=== PATIENT | female | born 1925 | race Caucasian/White ===

== ENCOUNTER 2016-03-14 11:35 | Emergency (ER) | payer MEDICARE ==
[2016-03-14] MEDS ORDERED: FENTANYL 100 MCG/2 ML VIAL ONE (13:14)
[2016-03-14 13:38] LABS: ABSOLUTE NEUTROPHIL COUNT 5.9 K/mm3 (1.8-7.7); BASO # 0.1 K/mm3 (0.0-0.2); BASO % 0.7 % (0.2-1.0); EOS # 0.3 (0.0-0.5); EOS % 3.3 % (0.9-2.9); HEMATOCRIT 43.2 % (37.0-47.0); HEMOGLOBIN 13.6 gm/l (12.0-16.0); IMM NEUT% 0.4 % (0-1); LYMPH # 1.8 (1.0-4.8); LYMPH % 20.7 % (15-45); MEAN CORPUSCULAR HEMOGLOBIN 31.5 pg (27.0-31.0); MEAN CORPUSCULAR HGB CONC 31.5 g/dl (33.0-37.0); MEAN PLATELET VOLUME 10.5 fl (7.4-10.4); MONO # 0.6 (0.0-0.8); MONO % 6.5 % (4-12); NEUT % 68.4 % (43-75); PLATELET COUNT 156 K/mm3 (130-400); RED CELL DISTRIBUTION WIDTH 13.2 % (11.5-14.5)
[2016-03-14 13:49] LABS: CALCIUM 9.4 mg/dL (8.6-10.3)
--- NOTE | 2016-03-14 14:05 | CT ---
HEAD W/O CON History: Fall yesterday. Comparison: 06/07/2014. Procedure: 1 mm axial images were obtained through the head from the vertex to the base of the skull without intravenous contrast. Stacked reconstructed 5 mm images were then obtained in the axial, coronal and sagittal planes. Findings: The lateral ventricles, cerebral sulci and sylvian fissures are mildly prominent. No evidence of midline shift is seen. No mass or mass effect is identified. No evidence of intra or extra-axial fluid collections or hemorrhage is seen. There are periventricular deep white matter low-attenuation changes again observed with a dystrophic focus of calcification within the right frontal deep white matter, similar to its appearance on prior examination. The basilar cisterns are uneffaced. The posterior fossa structures are unremarkable. No acute osseous abnormalities are identified. Impression: 1. No findings of acute intracranial hemorrhage. 2. Stable cerebral atrophy. 3. Periventricular deep white matter low-attenuation changes most consistent with small vessel ischemia considering patient age. 4. A focus of dystrophic calcification within the right frontal deep white matter, with a similar appearance to that seen on prior exam of 06/07/2014.
--- NOTE | 2016-03-14 14:11 | CT ---
C-SPINE W/O CON History: Fall. Procedure: 1 mm axial images were obtained through the cervical spine from the base of the skull to T1 with stacked reconstructed 2 mm images photographed in the axial, coronal and sagittal planes. Comparison: None. Findings: There is evidence of some motion artifact which slightly limits the examination. The osseous structures are intact without evidence of a discrete fracture. The alignment is normal. No significant subluxation is visualized. The facets align appropriately without evidence of a perched or jumped facet. The spinous processes appear to be intact. No prevertebral soft tissue swelling is observed. The pre-dens space is not widened. The odontoid process is intact. There are prominent cervical spondylosis changes and uncinate process hypertrophy identified with suggested partial fusion of the anterior and posterior elements at C3-4. There are minimal biapical emphysematous changes seen within the lung apices. Suggested right apical pleural-based scarring is also noted. Impression: 1. No definite fracture or significant subluxation visualized. 2. Prominent multilevel cervical spondylosis changes and uncinate process hypertrophy with partial fusion of the anterior and posterior elements at C3-4. 3. Right apical pleural scarring. 4. Dense atherosclerotic calcification of both carotid bulbs.
--- NOTE | 2016-03-14 14:17 | CT ---
UPPER EXT W/O CON RT History: Recent fall with known fracture. Comparison: Previous examinations performed at [facility] are unavailable. Procedure: 1 mm axial images were obtained through the right wrist without the use of oral or intravenous contrast.. Stacked reconstructed 3 mm images were then photographed in the axial, coronal and sagittal planes. Findings: Images were scanned within overlying cast material demonstrating a comminuted fracture of the distal right radial metaphysis. There is a slightly displaced dorsal cortical fragment identified as well as slight dorsal angulation of the distal radial fragment. The ulna appears to remain intact. There is little significant ulnar positive variance identified. The carpal structures appear to be intact as well. There are degenerative changes noted of the first carpometacarpal articulation. Soft tissue edematous changes are suggested. Impression: 1. A comminuted fracture of the distal right radial metaphysis with slight dorsal angulation of the distal fragment and a small displaced dorsal cortical fragment. 2. Suggested generative changes of the medial carpus and the first carpometacarpal articulation.
[2016-03-14] MEDS ORDERED: LACTATED RINGERS 1,000 ML ONE (14:24)
--- NOTE | 2016-03-14 15:26 | RAD ---
WRIST RIGHT 2 VIEWS HISTORY: Wrist fracture. COMPARISONS: CT examination of the same day. FINDINGS: 2 views of the right wrist were performed within overlying cast material demonstrating diffuse bony osteopenia. There is a comminuted fracture of the distal right radial metaphysis with slight dorsal angulation of the distal radial fragment. Degenerative changes are seen of the medial carpus and the first carpometacarpal articulation. Detail is obscured by the overlying cast material. IMPRESSION: 1. Bony osteopenia. 2. A slightly angulated comminuted fracture of the distal right radial metaphysis. 3. 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
== END 2016-03-14 17:16 | disposition home or self-care (01) ==
LOC: ED 11:35
DX: S52.501A Unspecified fracture of the lower end of right radius, initial encounter for closed fracture (principal); G31.9 Degenerative disease of nervous system, unspecified; M47.812 Spondylosis without myelopathy or radiculopathy, cervical region; W18.30XA Fall on same level, unspecified, initial encounter; Y92.009 Unspecified place in unspecified non-institutional (private) residence as the place of occurrence of the external cause
CPT/HCPCS: 85025; 82550; 80048; 73100; 72125; 70450; 73200; 99284 ×2; 29105; 96374; 96361; J3010; J7120

== ENCOUNTER 2016-04-08 21:03 | Inpatient (IN) | payer MEDICARE ==
[2016-04-08] MEDS ORDERED: SODIUM CHLORIDE 0.9% 250 ML IV ONE (21:37)
[2016-04-08 23:06] LABS: ABSOLUTE NEUTROPHIL COUNT 8.9 K/mm3 (1.8-7.7); BASO % 0.4 % (0.2-1.0); EOS % 0.4 % (0.9-2.9); HEMATOCRIT 39.8 % (37.0-47.0); HEMOGLOBIN 12.5 gm/l (12.0-16.0); IMM NEUT # 0.1 K/mm3 (0-0.2); IMM NEUT% 0.4 % (0-1); LYMPH # 1.4 (1.0-4.8); LYMPH % 12.7 % (15-45); MEAN CELL VOLUME 101.5 fl (81.0-99.0); MEAN CORPUSCULAR HEMOGLOBIN 31.9 pg (27.0-31.0); MEAN CORPUSCULAR HGB CONC 31.4 g/dl (33.0-37.0); MEAN PLATELET VOLUME 11.4 fl (7.4-10.4); MONO # 0.7 (0.0-0.8); MONO % 6.4 % (4-12); NEUT % 79.7 % (43-75); PLATELET COUNT 196 K/mm3 (130-400); RED CELL DISTRIBUTION WIDTH 13.9 % (11.5-14.5)
[2016-04-08 23:23] LABS: CALCIUM 10.3 mg/dL (8.6-10.3)
[2016-04-09] MEDS ORDERED: SODIUM CHLORIDE 0.9% 250 ML IV ONE (00:45)
[2016-04-09] MEDS ORDERED: MORPHINE SULFATE 2 MG/ML SYRINGE ONE (00:45)
[2016-04-09] MEDS ORDERED: ONDANSETRON 4 MG/2ML 2 ML VIAL ONE ×2 (00:45→12:44)
[2016-04-09] MEDS ORDERED: SODIUM POLYSTYRENE SULFONATE 15 G/60 ML BOT PR SCH ×3 (02:30→09:00)
[2016-04-09] MEDS ORDERED: SODIUM CHLORIDE 0.9% 100 ML IV PRN (02:31)
[2016-04-09] MEDS ORDERED: BLISTEX LIPSTICK 1 EACH TP PRN (02:31)
[2016-04-09] MEDS ORDERED: ACETAMINOPHEN 325 MG TABLET PO PRN (02:31)
[2016-04-09] MEDS ORDERED: MENTHOL/CETYLPYRD 1 EACH LOZENGE PO PRN (02:31)
[2016-04-09] MEDS ORDERED: BISACODYL 5 MG TABLET.EC PO PRN (02:31)
[2016-04-09] MEDS ORDERED: BISACODYL 10 MG SUP PR PRN (02:31)
[2016-04-09] MEDS ORDERED: NITROGLYCERIN SL PRN (02:39)
[2016-04-09] MEDS ORDERED: HYDROCODONE/ACETAMINOPHEN 5/325MG TABLET PO PRN (02:39)
[2016-04-09] MEDS ORDERED: ENOXAPARIN SODIUM 30 MG/0.3 ML SYRINGE SUB-Q SCH (02:45)
[2016-04-09] MEDS ORDERED: SODIUM CHLORIDE 0.9% 250 ML IV SCH ×2 (02:45→07:15)
[2016-04-09] MEDS ORDERED: ALBUTEROL/IPRATROPIUM 2.5/0.5 MG 3 ML/EACH DOSE NEB PRN (02:56)
[2016-04-09] MEDS ORDERED: PANTOPRAZOLE SODIUM 40 MG VIAL IV SCH (03:00)
[2016-04-09 04:45] LABS: CKMB ISOENZYME 3.6 ng/ml (0.6-6.3); MAGNESIUM 2.4 mg/dL (1.9-2.7)
[2016-04-09 04:52] LABS: TROPONIN I 0.08 ng/ml (0.0-0.06)
--- NOTE | 2016-04-09 07:04 | HP ---
RICKY MARIE [id number] DATE OF ADMISSION: April 09, 2016 CHIEF COMPLAINT: Weakness. HISTORY OF PRESENT ILLNESS: The patient is an 89-year-old female with a recent history of a fall with forearm fracture and hospitalization at [facility] from March 19 to March 31, 2016 who had returned home. Family reports that she was generally walking as recently as three days ago but then started having worsening appetite, being much weaker with some nausea. She had seen her electronic maintenance supervisor today, had some modest revisions in medication with reduction of aspirin and addition of Plavix. She has also been complaining of some back pain recently increased in the last day. PAST MEDICAL HISTORY: Remarkable for: 1. Recent hospitalization for influenza and pneumonia. 2. Gastroesophageal reflux disease. 3. Chronic kidney disease. 4. Iron deficiency anemia. 5. Mild dementia. 6. Obstructive sleep apnea but not on CPAP. 7. Hypothyroidism. 8. History of uterine cancer. 9. Wrist fracture on March 13, 2016. 10. Carotid and other vascular disease. 11. Bradycardia although she does not have a pacemaker. PAST SURGICAL HISTORY: Remarkable for: 1. Tonsillectomy. 2. Adenoidectomy. 3. Hemorrhoid surgery. 4. Total abdominal hysterectomy and bilateral salpingo-oophorectomy. 5. Laparoscopic cholecystectomy. 6. Detached retina. 7. Colonoscopy and esophagogastroduodenoscopy. ALLERGIES: QUININE. MEDICATIONS: Her home medications as best as can be determined between discharge medicines and input from family are: 1. Albuterol one to two puffs inhaled four times daily as needed. 2. Augmentin 875 one orally twice daily. 3. Aspirin 81 mg daily. 4. Cholecalciferol 2000 orally daily. 5. Celexa 20 mg orally at bedtime. 6. Clopidogrel 75 mg orally daily. 7. Vitamin B12 1000 mcg orally daily. 8. Doxycycline 100 mg orally daily. 9. Zetia 10 mg at bedtime. 10. Furosemide 20 mg orally daily in the morning. 11. [place] one half tablet orally every four hours as needed. 12. Imdur 30 mg orally daily. 13. Levothyroxine 75 mcg daily. 14. Lisinopril 2.5 mg orally daily. 15. Metoprolol 6.25 mg orally daily. 16. Nitroglycerin one spray sublingually as needed. 17. Fish oil 2000 units orally daily. 18. Omeprazole 20 mg orally daily. 19. Ropinirole 0.5 mg orally daily. 20. Simvastatin 40 mg at bedtime. 21. Spironolactone 25 mg orally daily. 22. Sucralfate 1 gram orally at meals and bedtime. SOCIAL HISTORY: She is . She had been living independently in her home in [place] with support from her family until her fall on March 13, 2016. She has a history of smoking and had smoked for 57 years but has quit. No alcohol use. She is [employer]. 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 FAMILY HISTORY: Not obtained, but her daughter volunteers that patient's father lived to be 105. REVIEW OF SYSTEMS: No eye, ear, nose or throat complaints other than some irritation from oxygen. She would like some ointment for this. Neck, no complaints. Lungs, sleep apnea, some pleural effusions noted. The recent flu and bilateral pleural effusions. Heart, myocardial infarction also associated with this hospitalization. She has congestive heart failure noted on discharge summary as well. Stomach, she had a little bit of blood in her phlegm and some nausea recently. No diarrhea. No constipation. Occasional diverticulitis but not recently. No urinary complaints. No skin complaints. She has had transient ischemic attacks in the past. She has a wrist fracture. CODE STATUS: Code status is not clear. Despite her marked electrolyte abnormalities and renal status, daughter would like to have intervention, but they are not going to pursue dialysis or other aggressive intervention. PHYSICAL EXAM: GENERAL: A slightly pale female. She does awaken some and answers some. VITAL SIGNS: Blood pressure 74/33, pulse 59, 95% saturation n 2 L, respirations 16, temperature 97.6. HEAD: Head is normocephalic, atraumatic. EYES: Are unremarkable. EARS: Right is unremarkable. Left is not examined due to positioning. NOSE: With some minimal irritation near her nares. MOUTH: Has dentures. NECK: Grossly unremarkable. LUNGS: Generally clear to auscultation bilaterally with fairly good air movement. HEART: Mostly regular but distant. ABDOMEN: Soft, nontender, nondistended. Bowel sounds are normal. GENITOURINARY: Exam is deferred. BREAST: Exam is deferred. EXTREMITIES: No clubbing, cyanosis or edema. NEUROLOGIC: Patient is resting but awakens and answers some. Pulses distant. LABORATORY: White count 11.1, hemoglobin 12.5, platelets 196. Sodium 128, potassium 7.4, chloride 98, CO2 20, BUN 135, creatinine 3.5, glucose 147, calcium 10.3. ASSESSMENT AND PLAN: 1. Hyperkalemia. Etiology attributed to acute on chronic kidney disease with use of lisinopril and spironolactone. This elevated result was confirmed. We will be holding spironolactone and lisinopril. Plan small dose of normal saline and anticipate use of Kayexalate either orally or rectally. Family is not interested in dialysis at this time. 2. Acute kidney injury with a previous GFR 25 dropping down to 18. Suspect combination of chronic kidney disease, lisinopril and possibly hypoperfusion from hypotension. Plan to give cautious fluid administration and monitor. 3. Recent influenza A and pneumonia discharged from hospital March 31, 2016. At this point her lung exam sounds fairly clear so we will plan to discontinue the antibiotics and check a chest x-ray. 4. Chronic obstructive pulmonary disease. Anticipate use of nebulizers if needed. 5. Recent non-ST elevation myocardial infarction earlier this month. Will plan to continue on aspirin and try to continue beta jann and Imdur. We will recheck troponin, CK as well as a BNP. 6. History of atrial fibrillation, sinus rhythm with bradycardia and right bundle branch block. We will plan continue with telemetry. 7. History of myxedema. Not otherwise addressed. 8. History of seasonal affective disorder. Not otherwise addressed. Anticipate continuing on citalopram. 9. Elevated glucose with an A1c of 5.8. We will consider monitoring blood sugars. 10. Dyslipidemia. We will actually be holding the simvastatin at this time. 11. Known systolic congestive heart failure with ejection fraction 25% on echocardiogram March,. We will be holding several medicines because of the renal status such as spironolactone and lisinopril and be cautious with fluids. 12. Back pain, etiology not clear. Could consider for imaging if potassium stabilizes. 13. CODE STATUS. One family member in particular is wishing for intervention. Discussed with family. They would appear to request at least a brief intervention in the event of a code. Reviewed the marked electrolyte abnormalities were a risk factor for dysrhythmias and other problems. 14. Venous thrombosis prophylaxis. Anticipate the use of low dose enoxaparin renally adjusted. cc: Linh Gallardo M.D. Isaac Marinelli M.D.
[2016-04-09] MEDS ORDERED: MORPHINE SULFATE 2 MG/ML SYRINGE IV PRN (07:11)
--- NOTE | 2016-04-09 07:22 | PDOC43 ---
- Subjective Chief Complaint: Weakness, ARF, hyperkalemia Patient's family reports some snoring/sleep apnea, but pt did get up to use commode. Was weak, but did it. No new c/o. - Objective Vital Signs Temperature 97.6 F 04/09/16 02:00 Pulse Rate 57 04/09/16 02:00 Respiratory Rate 16 04/09/16 02:00 Blood Pressure 64/28 04/09/16 02:00 O2 Saturation by Pulse Oximetry 95 04/09/16 02:00 Oxygen Delivery Method Nasal Cannula Oxygen Flow Rate 2 Vital Signs Last 12 Hours Temp Pulse Resp BP Pulse Ox 04/09/16 02:00 97.6 F 57 16 64/28 95 General: Other (sleeping, but does wake fairly easily. Answers briefly.) HEENT: Atraumatic Lungs: Clear to Auscultation Bilaterally, Normal Air Movement Cardiovascular: Regular Rate and Rhythm Abdomen: Soft, Normal Bowel Sounds, Non-Distended Extremities: Other (R forearm in cast), No Edema, No Tenderness Psych/Mental Status: Other (seems to wake, answer) Laboratory Tests 04/08/16 22:45 Phosphorus 6.1 H Magnesium 2.4 Creatine Kinase 59 CK-MB (CK-2) 3.6 Troponin I 0.08 H B-Natriuretic Peptide 202 H Current Medications: Current meds reviewed in EMR. Active Medications Acetaminophen (Tylenol) 650 mg PO Q6H PRN PRN Reason: Pain or Temperature > 100.5 F Acetaminophen/Hydrocodone Bitart ([place] 5/325) 0.5 tab PO Q4H PRN PRN Reason: Pain Albuterol/Ipratropium (Duoneb) 3 ml NEB Q6H PRN PRN Reason: Wheezing Aspirin (Ecotrin) 81 mg PO DAILY MARAH Benzocaine/Menthol (Cepacol) 1 each PO PRN PRN PRN Reason: Sore Throat Bisacodyl (Dulcolax) 10 mg MN DAILY PRN PRN Reason: Constipation Bisacodyl (Dulcolax) 5 mg PO DAILY PRN PRN Reason: Constipation Enoxaparin Sodium (Lovenox) 30 mg SUB-Q Q24H MARAH Sodium Chloride (Sodium Chloride 0.9%) 100 mls @ 25 mls/hr IV PRN PRN PRN Reason: Flush Isosorbide Mononitrate (Imdur) 30 mg PO DAILY [facility] Levothyroxine Sodium (Levothroid) 75 mcg PO QAMAC [facility] Metoprolol Succinate (Toprol Xl) 6.25 mg PO DAILY [facility] Miscellaneous (Nitroglycerin) 1 spray SL PRN PRN PRN Reason: Chest Pain Pantoprazole Sodium (Protonix) 40 mg IV Q24H [facility] Last Admin: 04/09/16 03:30 Dose: 40 mg Petrolatum/Paraffin/Mineral Oil (Blistex) 1 each TP PRN PRN PRN Reason: Dry and/or chapped lips Sodium Chloride (Normal Saline 10ml Flush) 10 - 50 ml IV PRN PRN PRN Reason: IV Flush Sodium Polystyrene Sulfonate (Kayexalate) 30 g MN Q6H [facility] - Problems: Assessment/Plan (1) Hyperkalemia Status: Acute Assessment/Plan: Presumed due to BERYL/CKD, plus meds (lisinopril, spironolactone) Receiving kayexalate, waiting on results for this am. Associated with elevated phosphorus, but Mg ok so far. Plan add Phos-Lo, waiting on am electrolytes (ordered for 8 am today), (2) Weakness Status: Acute Assessment/Plan: Primarily attributed to electrolyte disturbance(s), but multifactorial with recent NSTEMI, flu, pneumonia, BERYL. Holding meds as much as possible. Plan PT/OT when electrolytes improved. (3) Hypotension Qualifiers: Hypotension type: unspecified hypotension type Qualifier Code: (I95.9) Hypotension, unspecified Status: Acute Assessment/Plan: Plan add'l IV fluids cautiously. anticipate holding meds as well. (4) BERYL (acute kidney injury) Status: Acute Assessment/Plan: CKD from vascular dz, with suspected BERYL due to hypotension with marked hyperkalemia, elevated phosphorus, borderline Mg. Given kayexalate (MN), add Phos-Lo. Giving IVF to help with BP. (5) CAD (coronary artery disease) Status: Chronic Assessment/Plan: Pt with recent NSTEMI, but troponin, BNP, and CK-MB not bad considering. Hope to continue on aspirin, metoprolol, imdur if pressure allows. (6) CHF (congestive heart failure) Qualifiers: Congestive heart failure type: systolic Congestive heart failure chronicity: acute on chronic Qualifier Code: (I50.23) Acute on chronic systolic (congestive) heart failure Status: Chronic Assessment/Plan: LVEF earlier this month 25% on echo, multiple WMAs seen, RVP>50 mmHg Holding spironolactone, lisinopril due to hyperkalemia, BERYL VTE Prophylaxis: renal status precludes enoxaparin. Consider for mechanical tx. Disposition: To be determined.
[2016-04-09] MEDS ORDERED: LEVOTHYROXINE SODIUM 75 MCG TABLET PO SCH (07:30)
--- NOTE | 2016-04-09 07:33 | RAD ---
PORTABLE CHEST RADIOGRAPH HISTORY: Hyperkalemia, recent influenza. Frontal portable chest radiograph dated 04/09/2016. COMPARISON: 04/02/2015 FINDINGS: LUNG VOLUMES: Hyperinflation. FOCAL AIRSPACE OPACITY: No gross airspace consolidation. PLEURAL EFFUSION: None. CARDIOMEDIASTINAL SILHOUETTE: Nonenlarged. Aortic arch calcification. Left upper extremity approach venous catheter, tip projecting over superior vena cava. PNEUMOTHORAX: None identified. OSSEOUS STRUCTURES: No grossly destructive lesions. IMPRESSION: No acute cardiopulmonary process noted. Hyperinflation suggesting obstructive pulmonary disease. Left upper extremity approach PICC line.
[2016-04-09] MEDS ORDERED: METOPROLOL SUCCINATE 25 MG TAB.ER.24H PO SCH (09:00)
[2016-04-09] MEDS ORDERED: ASPIRIN (ENTERIC COATED) 81 MG TABLET.EC PO SCH (09:00)
[2016-04-09] MEDS ORDERED: ISOSORBIDE MONONITRATE 30 MG TAB.SR PO SCH (09:00)
[2016-04-09] MEDS ORDERED: CALCIUM ACETATE 667 MG CAPSULE PO SCH (09:00)
[2016-04-09 09:05] LABS: CALCIUM 9.5 mg/dL (8.6-10.3); MAGNESIUM 2.4 mg/dL (1.9-2.7)
[2016-04-09] MEDS ORDERED: SODIUM POLYSTYRENE SULFONATE 15 G/60 ML BOT PR ONE (09:30)
--- NOTE | 2016-04-09 09:41 | RAD ---
RIGHT WRIST 2 VIEWS HISTORY: Followup fracture. COMPARISONS: 03/16/2016 TECHNIQUE: Frontal and lateral views the left wrist. FRACTURE: Redemonstration of distal radial fracture status post cast fixation. Over the interval, there is increased impaction and dorsal displacement of the dominant fracture fragment, with notable dorsal tilt of the articular surface. There is increase in ulnar positive variance with abutment against the triquetrum. Nondisplaced ulnar styloid process fracture is noted. SOFT TISSUES: Residual soft tissue swelling. DEGENERATIVE CHANGE: Moderate degeneration radial aspects of the carpus. IMPRESSION: 1. Worsened alignment at distal right radial fracture with increased impaction and dorsal tilt of the dominant fracture fragment. 2. Increase in ulnar positive variance with abutment against the triquetrum. 3. Nondisplaced ulnar styloid process fracture.
[2016-04-09] MEDS ORDERED: SODIUM POLYSTYRENE SULFONATE 15 G/60 ML BOT PO ONE ×2 (10:34→12:09)
[2016-04-09] MEDS ORDERED: FUROSEMIDE 40 MG/4 ML VIAL IV ONE ×2 (12:04→16:00)
[2016-04-09] MEDS ORDERED: INSULIN REGULAR HUMAN (DOSE) 100 UNITS/1 ML IV ONE ×2 (12:04→15:30)
[2016-04-09] MEDS ORDERED: DEXTROSE 50%-WATER 25 G SYRINGE IV ONE (12:05)
[2016-04-09] MEDS ORDERED: ONDANSETRON 4 MG/2ML 2 ML VIAL IV PRN (12:34)
[2016-04-09] MEDS ORDERED: CALCIUM GLUCONATE 1,000 MG in SODIUM CHLORIDE 0.9% 100 ML IV ONE (12:45)
[2016-04-09] MEDS ORDERED: PUMP TUBING ONE ×2 (13:24→15:04)
[2016-04-09] MEDS ORDERED: SODIUM BICARBONATE IV SCH (13:30)
[2016-04-09] MEDS ORDERED: D5W IV SCH (13:30)
[2016-04-09 15:08] VITALS: BP 125/48
--- NOTE | 2016-04-09 15:32 | PDOC36 ---
Provider Note Subject: family discussion Note: family conference held with myself and pts children in regards to care plan. She did not respond to the kayexalate, and indeed her potassium worsened. trail of oral kayexalate failed due to vomiting after administration. posed option to family of pt either needing dialysis or placing her on comfort care here in [place]. Family elected to discuss with the rest of the family not present, but would like to explore transfer. I called [facility] and requested transfer consult. Spoke with Dr Lane who reviewed case with me. He notes that in his experience dialysis would buy pt a few days, and she was very risky dialysis candidate. I also spoke with Dr Arellano about pt. She agrees that risks were high and chance of success very low. however, she was willing to accept the pt to ICU and do the dialysis if desired by the family. Recommended serious conversation about risks, comfort and downsides of transport be held with the family. Dr. Arellano recommended insulin 10 units IV, 1 amp glucose, 500cc IVF, lasix, 1 amp bicarb and calcium be administered to pt now as aggressive treatment for the stabilization prior to transfer if that's what family wants. I had numerous conversations with the family following that call in regards to the advice of nephrology and hospitalist in [place] who has much more experience in dialysis than I do. Family and I conversed for over an hour in regards to benefits and risks. We discussed familys wishes to maximize the pts comfort and minimze her discomfort, as well as familys wishes that pt have higher quality of life. Attempts to have pt self determine her course failed as she was only able to say "I dont know" or not answer. Multiple family members tried to get pt to express an opinion without success. I then left pts family to have a conference after all their questions were answered. Family reported back to me that they would like to go ahead with the transfer. alerted [facility] that we were going to follow through with the transfer. Spoke with [facility] Manager Servicing Dr. Yu. reviewed case with him and he agrees to take pt in transfer. See transport summary for full details of care
--- NOTE | 2016-04-09 16:44 | TS ---
RICKY MARIE [id number] DATE OF ADMISSION: April 09, 2016 DATE OF TRANSFER: April 09, 2016 ADMIT DIAGNOSES: 1. Hyperkalemia. 2. Chronic kidney disease with acute exacerbation with acute renal failure. 3. Recent hospitalization for influenza and pneumonia. 4. Iron deficiency anemia. 5. Mild dementia. 6. Obstructive sleep apnea not on CPAP. 7. Hypothyroidism. 8. Wrist fracture of right wrist on March 13, 2016. 9. 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 10. Bradycardia. Patient does not have a pacemaker. TRANSFER DIAGNOSES: 1. Hyperkalemia. 2. Chronic kidney disease with acute exacerbation with acute renal failure. 3. Recent hospitalization for influenza and pneumonia. 4. Iron deficiency anemia. 5. Mild dementia. 6. Obstructive sleep apnea not on CPAP. 7. Hypothyroidism. 8. Wrist fracture of right wrist on March 13, 2016. 9. 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 10. Bradycardia. Patient does not have a pacemaker. HISTORY AND PHYSICAL: Please see History and Physical dictated. In short, this is an 89-year-old female who had a recent history of fall with a right forearm fracture and hospitalization at [facility] from March 19 to 2016. She also had an influenza with pneumonia that was treated during that treatment phase she also had non-ST elevation myocardial infarction noted. Patient was brought to the hospital on April 09, 2016, in the early morning babysitter due to weakness and malaise. She was noted to have a hyperkalemia and was admitted for management of the same. Patient's family was initially unsure about whether or not they wanted to pursue dialysis. HOSPITAL COURSE: Hospital course by problems as follows: 1. Hyperkalemia. Patient's hyperkalemia is attributed to her chronic kidney disease with acute renal failure. She was at home on lisinopril and spironolactone. These medications were held, and she was given IV fluids gently overnight as well as some Kayexalate rectally given the fact that the patient was not able to tolerate oral Kayexalate as she could not swallow safely. Initial conversation with the family in the emergency department decided that they did not want to pursue dialysis and so interventions were thought to be mild in an effort to see if the patient would improve or if she would require comfort care. The patient essentially failed the Kayexalate as her initial potassium of 7.1 increased to 7.4, and then to 7.8 after administration of her first doses of Kayexalate. Patient's GFR also decreased from her baseline of 25 down to 11 on April 09, 2016 in the morning. Lengthy conversation was held with the family in regard to care plan and her goals. Family eventually did elect to pursue transfer to [place] for dialysis. I had a conversation with Dr. Arellano as well as chronic condition nurse Dr. Thompson in regards to the patient and though we all agree that the patient's risks are significant, she was accepted in transfer for planned dialysis. Based on the patient's hyperkalemia that was worsening, Dr. Arellano suggested further medical interventions prior to transfer which was performed. Patient received 500 mL of IV fluids and ampule of glucose, 10 units of IV regular insulin and an amp of bicarb as well as 40 mg of Lasix IV. Patient received 15 mg of Kayexalate orally this morning but had some vomiting and was not able to tolerate any further. She also received 30 mg of Kayexalate rectally earlier today. Patient should be receiving calcium as was recommended by Dr. Arellano during transport or shortly before transport. 2. Acute kidney failure with previous chronic kidney disease. Patient's baseline GFR appears to be approximately 25. As noted before, it is down to 11. I suspect a combination of chronic kidney disease on top of the hits of lisinopril and likely hypoperfusion from hypotension. IV fluid administration has not assisted her kidney function at this point. 3. Recent influenza A and pneumonia. Patient was discharged from the hospital on March 31, 2016 due to this. Patient's lungs were clear throughout her hospital stay, and she was not on any antibiotics during her stay here. 4. Recent non-ST elevation myocardial infarction. During the patient's hospital stay at [facility] from which she was discharged on April 10, 2016, patient had a non-ST elevation myocardial infarction. Troponin done prior to admission showed only a very mild elevation of 0.08 of her troponin. Patient was on aspirin and beta jann as well as Imdur prior to admission. These were held as the patient was not taking orally very well. She was also hypotensive. An electrocardiogram prior to transfer showed peaked T waves but otherwise normal sinus rhythm and no ST elevations. 5. Congestive heart failure. Patient has known congestive heart failure with an ejection fraction of 25% on echocardiogram which was done in March,. Patient's medications were held because of poor oral intake and her renal status as noted above, and we were cautious with fluids. Patient's heart seems to be tolerating her treatments so far. 6. Code status. Multiple conversations were held with the family in regards to the code status. One family member in particular is wishing for some interventions though not any heroic measures. Patient is currently a LIMITED CODE. DISCHARGE MEDICATIONS: Ordered medications: 1. Acetaminophen 650 mg orally every six hours as needed for pain or fever. 2. Cook 5/325 mg 0.5 tablets orally every four hours as needed for pain. 3. Duoneb 3 mL nebulized every six hours as needed for any wheezing. 4. Aspirin 81 mg orally daily. 5. Dulcolax 10 mg orally daily as needed for constipation. 6. Dulcolax 5 mg orally daily as needed for constipation. 7. Fos-Lo 1334 mg orally three times daily with meals. 8. Imdur 30 mg orally daily. 9. Levothyroxine 75 mcg orally daily in the morning. 10. Metoprolol XL 6.25 mg orally daily. 11. Morphine 2 mg IV every two hours as needed for pain. 12. Nitroglycerin one spray sublingually as needed for chest pain. 13. Zofran 4 mg orally every four hours as needed for nausea and vomiting. 14. Protonix 40 mg IV every 24 hours scheduled. 15. Kayexalate 30 g per rectum every six hours scheduled. 16. As noted previously, the patient is not taking orals reliably and so most of these medications have been held unless they are IV. ACTIVITY: Patient is currently bed rest with assist out of bed if capable. She has fall precautions. DIET: Patient has a cardiac diet though she is really only taking some liquids on a limited basis. CONDITION: Patient is currently stable, however, her condition is likely to deteriorate. DISPOSITION: Patient is to be transferred to [facility] Intensive Care Unit, Room 4005, accepting doctor, Dr. Thompson, Dr. Arellano, who is a car detailer is aware of her as well.
== END 2016-04-09 16:05 | disposition short-term general hospital (02) | DRG 640 ==
LOC: ED 21:03 → MS 04-09 00:02
PROVIDERS: ADMIT Family Medicine; ATTEND Family Medicine
PROC: 02HV33Z Insertion of Infusion Device into Superior Vena Cava, Percutaneous Approach (ICD-10-PCS; principal; 2016-04-09)
DX: E87.5 Hyperkalemia (principal); I21.4 Non-ST elevation (NSTEMI) myocardial infarction; N17.9 Acute kidney failure, unspecified; K21.9 Gastro-esophageal reflux disease without esophagitis; N18.9 Chronic kidney disease, unspecified; D50.9 Iron deficiency anemia, unspecified; F03.90 Unspecified dementia, unspecified severity, without behavioral disturbance, psychotic disturbance, mood disturbance, and anxiety; G47.33 Obstructive sleep apnea (adult) (pediatric); E03.9 Hypothyroidism, unspecified; R00.1 Bradycardia, unspecified; J44.9 Chronic obstructive pulmonary disease, unspecified; I45.10 Unspecified right bundle-branch block; F39 Unspecified mood [affective] disorder; E78.5 Hyperlipidemia, unspecified; I95.9 Hypotension, unspecified

== ENCOUNTER 2016-05-03 11:29 | Emergency (ER) | payer MEDICARE ==
[2016-05-03 12:05] LABS: ABSOLUTE NEUTROPHIL COUNT 4.1 K/mm3 (1.8-7.7); BASO % 0.6 % (0.2-1.0); EOS # 0.1 (0.0-0.5); EOS % 1.6 % (0.9-2.9); HEMOGLOBIN 10.3 gm/l (12.0-16.0); IMM NEUT% 0.5 % (0-1); LYMPH # 1.3 (1.0-4.8); LYMPH % 20.7 % (15-45); MEAN CELL VOLUME 101.2 fl (81.0-99.0); MEAN CORPUSCULAR HEMOGLOBIN 31.6 pg (27.0-31.0); MEAN CORPUSCULAR HGB CONC 31.2 g/dl (33.0-37.0); MEAN PLATELET VOLUME 10.4 fl (7.4-10.4); MONO # 0.7 (0.0-0.8); NEUT % 65.6 % (43-75); PLATELET COUNT 194 K/mm3 (130-400); RED CELL DISTRIBUTION WIDTH 14.1 % (11.5-14.5)
[2016-05-03 12:25] LABS: ALB/GLOB RATIO 1.2 (>1.0); ALBUMIN 3.6 gm/dL (3.5-5.7); CALCIUM 9.2 mg/dL (8.6-10.3)
--- NOTE | 2016-05-03 13:00 | RAD ---
Exam: Two-view chest COMPARISON: 04/09/2016, 04/02/2015, 06/07/2014 INDICATION: Chest pain. FINDINGS: PA and lateral views of the chest were obtained. Cardiac silhouette is at the upper limits of normal but stable. Prominent epicardial fat pad and hiatal hernia again noted. Lungs are well-inflated. There is no focal airspace disease or pleural effusion. Bones of the chest wall within normal limits. IMPRESSION: No acute pulmonary process.
== END 2016-05-03 14:22 | disposition home or self-care (01) ==
LOC: ED 11:29
DX: M62.81 Muscle weakness (generalized) (principal); I50.9 Heart failure, unspecified; I25.2 Old myocardial infarction; N19 Unspecified kidney failure